=== PATIENT | male | born 1985 | race Caucasian/White ===

== ENCOUNTER 2024-03-01 20:06 | Emergency (ER) | payer OTHER ==
[2024-03-01] MEDS: BACITRACIN OINT 1 EACH PACKET TOPICAL ONE (20:55)
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
[2024-03-01 21:56] VITALS: BP 136/85; PULSE 100; RESP 22; TEMP 98.7
== END 2024-03-01 21:32 | disposition home or self-care (01) ==
LOC: EC 20:06
DX: S00.01XA Abrasion of scalp, initial encounter (principal); T22.00XA Burn of unspecified degree of shoulder and upper limb, except wrist and hand, unspecified site, initial encounter; V89.2XXA Person injured in unspecified motor-vehicle accident, traffic, initial encounter; Y92.410 Unspecified street and highway as the place of occurrence of the external cause
CPT/HCPCS: 99284

== ENCOUNTER 2024-03-02 23:45 | Emergency (ER) | payer OTHER ==
[2024-03-03 00:14] VITALS: RESP 18
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
[2024-03-03] MEDS: KETOROLAC 15 MG/ML 1 ML VIAL IM STA (00:52)
[2024-03-03 01:29] LABS: Appearance,Urine Clear (Clear); Bilirubin,Urine Negative (Negative); Blood,Urine Negative (Negative); Color,Urine Colorless; Glucose,Urine (UA) Negative (Negative); Ketones,Urine Negative (Negative); Leukocyte Esterase,Urine Negative (Negative); Nitrite,Urine Negative (Negative); PH, Urine 6.5 (5.0-8.0); Protein,Urine Negative (Negative); Specific Gravity,Urine 1.019 (1.001-1.035); Urobilinogen,Urine <2.0 mg/dL (<2.0)
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
[2024-03-03 02:22] VITALS: BP 118/76; PULSE 80; TEMP 97.7
== END 2024-03-03 02:12 | disposition home or self-care (01) ==
LOC: EC 23:45
DX: S20.219A Contusion of unspecified front wall of thorax, initial encounter (principal); V43.52XA Car driver injured in collision with other type car in traffic accident, initial encounter; Y92.410 Unspecified street and highway as the place of occurrence of the external cause
CPT/HCPCS: 99284; 96372; 81003; 71101; 72125; 70450; J1885

== ENCOUNTER 2024-03-12 13:06 | Emergency (ER) | payer OTHER ==
[2024-03-12 13:38] VITALS: PULSE 87
[2024-03-12] MEDS: ORPHENADRINE 30 MG/ML 2 ML VIAL IM STA (14:16)
[2024-03-12] MEDS: KETOROLAC 15 MG/ML 1 ML VIAL IM STA (14:16)
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
[2024-03-12] MEDS: ACET/COD 300 MG/30 MG STARTER PACK 6 TAB BTL PO STA (15:26)
[2024-03-12] MEDS: DEXAMETHASONE SOD PHOSPHATE 10 MG/ML 1 ML VIAL IM STA (15:26)
[2024-03-12] MEDS: HYDROcodone/APAP 7.5-325MG 1 EACH TAB PO ONE (15:27)
[2024-03-12 15:45] VITALS: BP 131/88; RESP 17; TEMP 97.9
== END 2024-03-12 15:32 | disposition home or self-care (01) ==
LOC: EC 13:06
DX: M25.512 Pain in left shoulder (principal); V89.2XXA Person injured in unspecified motor-vehicle accident, traffic, initial encounter; Y92.410 Unspecified street and highway as the place of occurrence of the external cause
CPT/HCPCS: 73030; 99284; 96372 ×3; J1100; J2360; J1885

== ENCOUNTER 2025-02-06 12:42 | Emergency (ER) | payer OTHER ==
--- NOTE | 2025-02-06 13:15 | XR ---
EXAMINATION TYPE: XR foot complete RT DATE OF EXAM: 02/06/2025 COMPARISON: NONE HISTORY: Pain TECHNIQUE: Frontal, lateral and oblique images of the right foot are obtained. COMPARISON: None. FINDINGS: No evidence of any acute osseous pathology. No evidence of soft tissue swelling. Joints a re preserved. Incidental note is made of symphalangism of the fifth distal interphalangeal joint. IMPRESSION: There is no acute fracture or dislocation seen. [facility], , 02/06/2025 1:12 PM
--- NOTE | 2025-02-06 13:31 | ED ---
Lower Extremity Injury HPI - General Chief Complaint: Extremity Injury, Lower Stated Complaint: Right foot injury Time Seen by Provider: 02/06/25 12:43 Source: patient, RN notes reviewed Mode of arrival: ambulatory Limitations: no limitations - History of Present Illness Initial Comments: 39-year-old male presents emergency department complaint of right foot pain. Patient states he kicked a ball down trash can last night. Patient states he has midfoot pain. Patient denies any ankle pain he states he did have first digit pain but is able to ambulate. No paresthesias. - Related Data Home Medications Medication Instructions Recorded Confirmed Cholecalciferol (Vitamin D3) 1,250 mcg PO DIRECTED 03/12/24 03/12/24 [Vitamin D3 (1250 Mcg = 50,000 Iu)] Dextroamphetamine/Amphetamine 30 mg PO AC-BRKFST 03/12/24 03/12/24 [Adderall Xr 30 mg Capsule] Dextroamphetamine/Amphetamine 30 mg PO PC-BRKFST 03/12/24 03/12/24 [Adderall] Previous Rx's Medication Instructions Recorded Meloxicam [Mobic] 15 mg PO DAILY PRN #20 tab 03/12/24 methocarbamoL [Robaxin-750] 1,500 mg PO TID PRN #30 tab 03/12/24 Allergies Allergy/AdvReac Type Severity Reaction Status Date / Time No Known Allergies Allergy Verified 03/12/24 15:12 Review of Systems ROS Statement: Those systems with pertinent positive or pertinent negative responses have been documented in the HPI. ROS Other: All systems not noted in ROS Statement are negative. Past Medical History Past Medical History: No Reported History History of Any Multi-Drug Resistant Organisms: None Reported Past Surgical History: No Surgical Hx Reported Past Psychological History: No Psychological Hx Reported Smoking Status: Never smoker Past Alcohol Use History: Occasional Past Drug Use History: None Reported General Exam Limitations: no limitations General appearance: alert, in no apparent distress Head exam: Present: atraumatic, normocephalic, normal inspection Eye exam: Present: normal appearance, PERRL, EOMI. Absent: scleral icterus, conjunctival injection, periorbital swelling ENT exam: Present: normal exam, mucous membranes moist Neck exam: Present: normal inspection, full ROM. Absent: tenderness, meningismus, lymphadenopathy Respiratory exam: Present: normal lung sounds bilaterally. Absent: respiratory distress, wheezes, rales, rhonchi, stridor Cardiovascular Exam: Present: regular rate, normal rhythm, normal heart sounds. Absent: systolic murmur, diastolic murmur, rubs, gallop, clicks Neurological exam: Present: alert Skin exam: Present: warm, dry, intact, normal color. Absent: rash Course Vital Signs 02/06/25 12:48 Temperature 97.8 F Pulse Rate 83 Respiratory 16 Rate Blood Pressure 148/88 O2 Sat by Pulse 98 Oximetry Medical Decision Making - Medical Decision Making Was pt. sent in by a medical professional or institution (, [facility], [facility], urgent care, hospital, or intermediate...) When possible be specific @ -No Did you speak to anyone other than the patient for history (EMS, parent, family, police, friend...)? What history was obtained from this source @ -No Did you review nursing and triage notes (agree or disagree)? Why? @ -I reviewed and agree with nursing and triage notes Were old charts reviewed (outside hosp., previous admission, EMS record, old EKG, old radiological studies, urgent care reports/EKG's, intermediate records)? Report findings @ -No old charts were reviewed Differential Diagnosis (chest pain, altered mental status, abdominal pain women, abdominal pain men, vaginal bleeding, weakness, fever, dyspnea, syncope, headache, dizziness, GI bleed, back pain, seizure, CVA, palpatations, mental health, musculoskeletal)? @ -Foot contusion, foot fracture EKG interpreted by me (3pts min.). @ -None none X-rays interpreted by me (1pt min.). @ -X-ray right foot no acute fracture CT interpreted by me (1pt min.). @ -None done U/S interpreted by me (1pt. min.). @ -None done What testing was considered but not performed or refused? (CT, X-rays, U/S, labs)? Why? @ -None What meds were considered but not given or refused? Why? @ -None Did you discuss the management of the patient with other professionals (professionals i.e. [facility] Gallardo, [facility], lab, RT, psych nurse, social economist, adjuster and inspector, teacher, community services officer, case management rn)? Give summary @ -No Was smoking cessation discussed for >3mins.? @ -No Was critical care preformed (if so, how long)? @ -No Were there social determinants of health that impacted care today? How? (Homelessness, low income, unemployed, alcoholism, drug addiction, transportation, low edu. Level, literacy, decrease access to med. care, care home, rehab)? @ -No Was there de-escalation of care discussed even if they declined (Discuss DNR or withdrawal of care, Hospice)? DNR status @ -No What co-morbidities impacted this encounter? (DM, HTN, Smoking, COPD, CAD, Cancer, CVA, ARF, Chemo, Hep., AIDS, mental health diagnosis, sleep apnea, morbid obesity)? @ -None Was patient admitted / discharged? Hospital course, mention meds given and route, prescriptions, significant lab abnormalities, going to OR and other pertinent info. @ -Discharge patient has a right foot contusion no acute fracture on x-ray patient discharged in stable condition. Undiagnosed new problem with uncertain prognosis? @ -No Drug Therapy requiring intensive monitoring for toxicity (Heparin, Nitro, Insulin, Cardizem)? @ -No Were any procedures done? @ -No Diagnosis/symptom? @ -Right foot contusion Acute, or Chronic, or Acute on Chronic? @ -Acute Uncomplicated (without systemic symptoms) or Complicated (systemic symptoms)? @ -Uncomplicated Side effects of treatment? @ -No Exacerbation, Progression, or Severe Exacerbation? @ -No Poses a threat to life or bodily function? How? (Chest pain, [place], [place], pneumonia, PE, COPD, DKA, ARF, appy, cholecystitis, CVA, Diverticulitis, Homicidal, Suicidal, threat to staff... and all critical care pts) @ -No Disposition Clinical Impression: Contusion of right foot Disposition: HOME SELF-CARE Condition: Stable Instructions (If sedation given, give patient instructions): Foot Contusion (ED) Additional Instructions: Please return to the Emergency Department if symptoms worsen or any other concerns. Is patient prescribed a controlled substance at d/c from ED?: No Referrals: Guillermo Cohen MD [Primary Care Provider] - 1-2 days Time of Disposition: 13:30
[2025-02-06 13:42] VITALS: BP 140/79; PULSE 75; RESP 18; TEMP 97.7
== END 2025-02-06 14:11 | disposition home or self-care (01) ==
LOC: EC 12:42
DX: S90.31XA Contusion of right foot, initial encounter (principal); W22.09XA Striking against other stationary object, initial encounter
CPT/HCPCS: 99283

== ENCOUNTER 2025-02-16 14:05 | Emergency (ER) | payer OTHER ==
--- NOTE | 2025-02-16 14:35 | ED ---
Lower Extremity Injury HPI - General Chief Complaint: Recheck/Abnormal Lab/Rx Stated Complaint: R foot injury recheck Time Seen by Provider: 02/16/25 14:25 Source: patient, RN notes reviewed Mode of arrival: ambulatory Limitations: no limitations - History of Present Illness Initial Comments: This is a 39-year-old male who presents to the emergency department for right foot pain. Patient states that earlier this month he kicked a trash can with his right foot. He came in a couple of days later due to increasing pain and swelling, and states that the imaging was negative. Since then the swelling started to go down, but states that it is still very painful. Pain is primarily near the right big toe and the top of the foot. He is able to ambulate but states that it is uncomfortable. MD Complaint: foot injury - Related Data Home Medications Medication Instructions Recorded Confirmed Cholecalciferol (Vitamin D3) 1,250 mcg PO DIRECTED 03/12/24 03/12/24 [Vitamin D3 (1250 Mcg = 50,000 Iu)] Dextroamphetamine/Amphetamine 30 mg PO AC-BRKFST 03/12/24 03/12/24 [Adderall Xr 30 mg Capsule] Dextroamphetamine/Amphetamine 30 mg PO PC-BRKFST 03/12/24 03/12/24 [Adderall] Previous Rx's Medication Instructions Recorded Meloxicam [Mobic] 15 mg PO DAILY PRN #20 tab 03/12/24 methocarbamoL [Robaxin-750] 1,500 mg PO TID PRN #30 tab 03/12/24 Allergies Allergy/AdvReac Type Severity Reaction Status Date / Time No Known Allergies Allergy Verified 02/16/25 14:15 Review of Systems ROS Statement: Those systems with pertinent positive or pertinent negative responses have been documented in the HPI. ROS Other: All systems not noted in ROS Statement are negative. Past Medical History Past Medical History: No Reported History History of Any Multi-Drug Resistant Organisms: None Reported Past Surgical History: No Surgical Hx Reported Past Psychological History: No Psychological Hx Reported Smoking Status: Never smoker Past Alcohol Use History: Occasional Past Drug Use History: None Reported General Exam Limitations: no limitations General appearance: alert, in no apparent distress Head exam: Present: atraumatic, normocephalic, normal inspection Respiratory exam: Present: normal lung sounds bilaterally. Absent: respiratory distress, wheezes, rales, rhonchi, stridor Cardiovascular Exam: Present: regular rate, normal rhythm Extremities exam: Present: other (Swelling and tenderness to the top of the right foot. Full ROM. 2+ DP and PT pulses. ) Neurological exam: Present: alert, oriented X3, CN II-XII intact Psychiatric exam: Present: normal affect, normal mood Skin exam: Present: warm, dry, intact, normal color. Absent: rash Course Vital Signs 02/16/25 14:11 Temperature 98.0 F Pulse Rate 117 H Respiratory 15 Rate Blood Pressure 174/101 O2 Sat by Pulse 98 Oximetry Medical Decision Making - Medical Decision Making This is a 39-year-old male who presents to the emergency department for right foot pain. Was pt. sent in by a medical professional or institution? @ -No Did you speak to anyone other than the patient for history? @ -No Did you review nursing and triage notes? @ -Yes, and I agree, it is accurate with regards to the patient's symptoms. Were old charts reviewed? @ -X-ray of the right foot from 02/06/25 revealing no acute process. Differential Diagnosis? @ -Differential Musculoskeletal Muscular strain, contusion, ligament sprain, fracture, arthritis, septic arthritis, bursitis, cellulitis, muscle spasm, nerve compression, DVT, arterial occlusion, herpes zoster, electrolyte abnormality, tumor.... This is not meant to be in all inclusive list. EKG interpreted by me (3pts min.)? @ -Not obtained X-rays interpreted by me (1pt min.)? @ -X-ray of the right foot obtained. My interpretation identifies no acute fractures. CT interpreted by me (1pt min.)? @ -Not obtained U/S interpreted by me (1pt. min.)? @ -Not obtained What testing was considered but not performed? (CT, X-rays, U/S, labs)? Why? @ -None What meds were considered but not given? Why? @ -None Did you discuss the management of the patient with other professionals? @ -No Did you reconcile home meds? @ -No Was smoking cessation discussed for >3mins.? @ -No Was critical care preformed (if so, how long)? @ -No Were there social determinants of health that impacted care today? How? (Homelessness, low income, unemployed, alcoholism, drug addiction, transportation, low edu. Level, literacy, decrease access to med. care, custodial, rehab)? @ -No Was there de-escalation of care discussed even if they declined? (Discuss DNR or withdrawal of care, Hospice)? @ -No What co-morbidities impacted this encounter? (DM, HTN, Smoking, COPD, CAD, Cancer, CVA, Hep., AIDS, mental health diagnosis, sleep apnea, morbid obesity)? @ -None Was patient admitted / discharged? @ -Discharged. X-ray of the right foot obtained revealing soft tissue swelling without other acute process. Patient declined the need any for any pain medication in the emergency department. Pain is all localized near the great toe and dorsal aspect of the foot. He maintained full range of motion. There was no ecchymosis or erythema on exam. Advised ibuprofen and Tylenol as needed for pain relief. He was sent home with a Velcro postoperative shoe to be used if needed so he does not have to continue to stuff his foot in his tennis shoe, which may be causing further irritation. Information for follow-up with orthopedics provided in the event pain persists. Patient discharged home in stable condition. Case discussed with ED attending Dr. Blake. Return precautions reviewed in depth, the patient is instructed to return to the emergency department with any new, worsening, or concerning symptoms. Patient verbalized understanding. Undiagnosed new problem with uncertain prognosis? @ -None Drug Therapy requiring intensive monitoring for toxicity (Heparin, Nitro, Insulin, Cardizem)? @ -None Were any procedures done? @ -None Diagnosis/symptom? @ -Right foot injury Acute, or Chronic, or Acute on Chronic? @ -Acute Uncomplicated (without systemic symptoms) or Complicated (systemic symptoms)? @ -Uncomplicated Side effects of treatment? @ -None Exacerbation, Progression, or Severe Exacerbation] @ -Not applicable Poses a threat to life or bodily function? @ -No - Radiology Data Radiology results: report reviewed, image reviewed Disposition Clinical Impression: Right foot injury Disposition: HOME SELF-CARE Instructions (If sedation given, give patient instructions): Foot Sprain (ED) Additional Instructions: Return to the emergency department with any new, worsening, or concerning symptoms. Alternate with ibuprofen and Tylenol as needed for pain relief. Consider reaching out to the orthopedic office listed below regarding your ongoing symptoms. Use the postoperative shoe provided as needed. Follow up with your primary care provider in 1-2 days. Is patient prescribed a controlled substance at d/c from ED?: No Referrals: Guillermo Cohen MD [Primary Care Provider] - 1-2 days Magdy Martinez MD [STAFF PHYSICIAN] - 1-2 days Time of Disposition: 15:24
--- NOTE | 2025-02-16 14:51 | XR ---
EXAMINATION TYPE: XR foot complete RT DATE OF EXAM: 02/16/2025 COMPARISON: Right foot radiograph 02/06/2025 HISTORY: Pain History TECHNIQUE: Frontal, lateral and oblique images of the right foot are obtained. COMPARISON: None. FINDINGS: No evidence of any acute osseous pathology. Mild soft tissue swelling of the dorsal midfo ot. Joints are preserved. 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 Tiny posterior calcaneal enthesophyte. No radiopaque foreign body. IMPRESSION: 1. There is no acute fracture or dislocation seen. 2. Mild soft tissue swelling of the dorsal midfoot. [facility], , 02/16/2025 2:49 PM
[2025-02-16 15:54] VITALS: BP 154/91; PULSE 97; RESP 16; TEMP 98
== END 2025-02-16 15:53 | disposition home or self-care (01) ==
LOC: EC 14:05
DX: S99.921A Unspecified injury of right foot, initial encounter (principal); W22.8XXA Striking against or struck by other objects, initial encounter
CPT/HCPCS: 99284